=== PATIENT | female | born 1950 | race Caucasian/White ===

== ENCOUNTER 2016-12-07 15:44 | Emergency (ER) | payer MEDICARE, MEDICAID ==
[~2016-12-07] VITALS: Ht 162.6 cm; Wt 79.4 kg
[2016-12-07] MEDS ORDERED: SODIUM CHLORIDE FLUSH 10ML SYR IVF ONE (16:30)
[2016-12-07 16:40] LABS: ASPARTATE AMINO TRANSFERASE 14 U/L (15-37); BLOOD UREA NITROGEN 11 mg/dL (7-18)
[2016-12-07 17:00] LABS: HEMOGLOBIN 16.9 g/dL (11.7-16.4)
[2016-12-07] MEDS ORDERED: ENOXAPARIN 40 MG/0.4 ML SQ SCH (17:30)
[2016-12-07] MEDS ORDERED: DOCUSATE 100 MG CAPSULE PO PRN (17:30)
[2016-12-07] MEDS ORDERED: TRAZODONE 50MG TABLET PO PRN (17:30)
[2016-12-07] MEDS ORDERED: ENALAPRILAT 1.25 MG/ML, 2ML IVPush PRN (17:30)
[2016-12-07] MEDS ORDERED: ACETAMINOPHEN 325 MG TABLET PO PRN (17:30)
[2016-12-07] MEDS ORDERED: GUAIFENESIN/DM 200-20MG, 10ML UDC PO PRN (17:30)
[2016-12-07] MEDS ORDERED: ONDANSETRON ODT 4 MG PO PRN (17:30)
[2016-12-07] MEDS ORDERED: HYDROcodone/APAP 5/325 TABLET PO PRN (17:30)
[2016-12-07] MEDS ORDERED: OMNIPAQUE 350 MG/ML, 200ML BOTTLE ONE (17:37)
[2016-12-07 17:44] LABS: IS PT STATUS REG ER OR PRE ER? YES
[2016-12-07] MEDS ORDERED: ACETAMINOPHEN 325 MG TABLET ONE (17:56)
[2016-12-07] MEDS ORDERED: ACETAMINOPHEN 325 MG TABLET PO ONE (18:00)
[2016-12-07 18:59] VITALS: BP 137/79
[2016-12-07] MEDS ORDERED: SODIUM CHLORIDE FLUSH 10ML SYR IVF SCH (21:00)
== END 2016-12-07 19:20 | disposition home or self-care (01) ==
LOC: ED 17:02 → EDIP 17:03 → UNDOADMOB 17:03 → ED 17:40
DX: Z76.1 Encounter for health supervision and care of foundling (principal)
CPT/HCPCS: 36415; 70496; 70498; 71275; 80053; 84484; 85025; 93005; 99285; Q9967